=== PATIENT | male | born 1970 | race Hispanic/Latino ===

== ENCOUNTER 2017-05-16 06:58 | Emergency (ER) | payer OTHER ==
[2017-05-16 06:59] VITALS: BMI 34.2
[2017-05-16 07:13] VITALS: BP 112/67; PULSE 73; RESP 16; TEMP 98.1; O2SAT 95
--- NOTE | 2017-05-16 07:24 | ED PDOC ---
Arrival/HPI - General Chief Complaint: Trauma Time Seen by Provider: 05/16/17 07:14 Historian: Patient - History of Present Illness Narrative History of Present Illness (Text): 05/16/17 07:39 A 46 year old male presents to the emergency department complaining of a headache and nose redness and swelling. Patient reports he was at work and as he turned his head hit his nose on the cart. Patient denies any malocclusion of jaw. Denies any loss of consciousness, vomiting, double vision or any other complaints at this time. PMD: Dr. Scott Davidson Symptom Onset: Sudden Symptom Course: Unchanged Modifying Factors (Text): none Context: Work Past Medical History - Provider Review Nursing Documentation Reviewed: Yes - Past History Past History: No Previous - Infectious Disease Hx of Infectious Diseases: None - Tetanus Immunization Tetanus Immunization: Unknown - Cardiac Hx Cardiac Disorders: Yes Other/Comment: dvt left leg post knee sx 2010 - Pulmonary Hx Respiratory Disorders: Yes Hx Pulmonary Embolism: Yes (2009 post op) - Neurological Hx Neurological Disorder: No - HEENT Hx HEENT Disorder: No - Renal Hx Renal Disorder: No - Endocrine/Metabolic Hx Endocrine Disorders: No - Hematological/Oncological Hx Blood Disorders: No - Integumentary Hx Dermatological Disorder: No - Musculoskeletal/Rheumatological Hx Musculoskeletal Disorders: Yes Hx Fractures: Yes (nasal fx) Hx Osteoarthritis: Yes - Gastrointestinal Hx Gastrointestinal Disorders: No - Genitourinary/Gynecological Hx Genitourinary Disorders: No - Psychiatric Hx Psychophysiologic Disorder: No Hx Depression: No Hx Substance Use: No - Past Surgical History Past Surgical History: No Previous - Surgical History Hx Arthroscopy: Yes (left leg) - Anesthesia Hx Anesthesia: Yes Hx Anesthesia Reactions: No Hx Malignant Hyperthermia: No - Suicidal Assessment Feels Threatened In Home Enviroment: No Family/Social History - Physician Review Nursing Documentation Reviewed: Yes Family/Social History: No Known Family HX Smoking Status: Never Smoked Hx Alcohol Use: No Hx Substance Use: No Hx Substance Use Treatment: No Allergies/Home Meds Allergies/Adverse Reactions: Allergies No Known Allergies Allergy (Verified 05/16/17 07:21) Review of Systems - Physician Review All systems were reviewed & negative as marked: Yes - Review of Systems Eyes: absent: Vision Changes ENT: Other (nose redness and swelling) Gastrointestinal: absent: Vomiting Neurological: Headache Physical Exam - Physical Exam Narrative Physical Exam (Text): 05/16/17 08:00 Constitutional: No acute distress. Head: Normocephalic. Atraumatic. Eyes: PERRL. EOMI without pulpia ENT: Moist mucous membranes. Nose straight with mild swelling erythema over bridge, nontender, sensation to light, touch, equal bilaterally face Neck: Supple. Cardiovascular: Regular rate. Chest: No tenderness. Respiratory: Clear to auscultation bilaterally. GI: Soft. Nontender. Nondistended. Back: No CVA tenderness. Musculoskeletal: No tenderness or swelling of extremities. Skin: No rash. Neurologic: Alert, no focal deficit. Vital Signs Reviewed: Yes Vital Signs Temp Pulse Resp BP Pulse Ox 05/16/17 07:12 98.1 F 73 16 112/67 95 Temperature: Afebrile Blood Pressure: Normal Pulse: Regular Respiratory Rate: Normal Appearance: Positive for: Well-Appearing, Non-Toxic, Comfortable Pain Distress: None Mental Status: Positive for: Alert and Oriented X 3 Medical Decision Making ED Course and Treatment: 05/16/17 07:25 Impression: A 46 year old male with headache and nose redness and swelling. Plan: -- Reassess and disposition Prior Visits: Notes and results from previous visits were reviewed. Patient was last seen in the emergency department on 11/09/16 for evaluation of sore mouth. Progress Notes: On re-evaluation, patient feels better and is in no acute distress. Patient in agreement with plan to be discharged home. Patient is stable for discharge. Patient was instructed to follow up with physician or return if symptoms worsen or new concerning symptoms arise. - Medication Orders Current Medication Orders: Discontinued Medications Ibuprofen (Motrin Tab) 600 mg PO STAT STA Stop: 05/16/17 07:34 Last Admin: 05/16/17 07:43 Dose: 600 mg - Scribe Statement The provider has reviewed the documentation as recorded by the Nathan Denise Provider Scribe Attestation: All medical record entries made by the Nathan were at my direction and personally dictated by me. I have reviewed the chart and agree that the record accurately reflects my personal performance of the history, physical exam, medical decision making, and the department course for this patient. I have also personally directed, reviewed, and agree with the discharge instructions and disposition. Disposition/Present on Arrival - Present on Arrival Any Indicators Present on Arrival: Yes History of DVT/PE: Yes History of Uncontrolled Diabetes: No Urinary Catheter: No History of Decub. Ulcer: No History Surgical Site Infection Following: None - Disposition Have Diagnosis and Disposition been Completed?: Yes Diagnosis: Nasal contusion Disposition: HOME/ ROUTINE Disposition Time: 07:22 Patient Plan: Discharge Condition: STABLE Discharge Instructions (ExitCare): Nasal Contusion (ED) Prescriptions: Ibuprofen [Motrin] 600 mg PO Q6 #25 tab Referrals: Catalina Anderson, [Primary Care Provider] - Follow up with primary Forms: [employer] (Nepali), WORK NOTE
== END 2017-05-16 08:00 | disposition home or self-care (01) ==
LOC: ED 06:58
DX: S00.33XA Contusion of nose, initial encounter (principal); W22.8XXA Striking against or struck by other objects, initial encounter; Y99.0 Civilian activity done for income or pay

== ENCOUNTER 2017-06-06 08:48 | Emergency (ER) | payer OTHER ==
[2017-06-06 08:52] VITALS: BMI 33.5
[2017-06-06 09:30] VITALS: BP 139/77; PULSE 69; RESP 16; TEMP 97.9; O2SAT 96
--- NOTE | 2017-06-06 09:38 | ED PDOC ---
Arrival/HPI - General Historian: Patient - General Chief Complaint: Back Pain Time Seen by Provider: 06/06/17 09:25 - History of Present Illness Narrative History of Present Illness (Text): 06/06/17 09:30 46 yo male, worker of [employer], come in for evaluation of Right flank pain gradually developed since early today. 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 Pt reports, pain is gradually developed over Right flank area since the accident. Pt denies fall, denies direct injury, abd. pain, N/V/D, chest pain, shortness of breath, dyspnea, saddle anesthesia, incontinence, denies weakness, sensory or vascular deficits to B/L LEs. Ambulate to Emergency department for evaluation, not in any apparent distress. ( Linda Lundberg) Past Medical History - Provider Review Nursing Documentation Reviewed: Yes - Travel History Have you recently traveled outside [place] w/in the past 3 mons?: No - Past History Past History: No Previous - Infectious Disease Hx of Infectious Diseases: None - Tetanus Immunization Tetanus Immunization: Up to Date - Cardiac Hx Cardiac Disorders: Yes Other/Comment: dvt left leg post knee sx 2010 - Pulmonary Hx Respiratory Disorders: Yes Hx Pulmonary Embolism: Yes (2010 post op) - Neurological Hx Neurological Disorder: No - HEENT Hx HEENT Disorder: No - Renal Hx Renal Disorder: No - Endocrine/Metabolic Hx Endocrine Disorders: No - Hematological/Oncological Hx Blood Disorders: No - Integumentary Hx Dermatological Disorder: No - Musculoskeletal/Rheumatological Hx Musculoskeletal Disorders: Yes Hx Fractures: Yes (nasal fx) Hx Osteoarthritis: Yes - Gastrointestinal Hx Gastrointestinal Disorders: No - Genitourinary/Gynecological Hx Genitourinary Disorders: No - Psychiatric Hx Psychophysiologic Disorder: No Hx Depression: No Hx Substance Use: No Other/Comment: Insomnia - Past Surgical History Past Surgical History: No Previous - Surgical History Hx Arthroscopy: Yes (left leg x3) - Anesthesia Hx Anesthesia: Yes Hx Anesthesia Reactions: No Hx Malignant Hyperthermia: No - Suicidal Assessment Feels Threatened In Home Enviroment: No Family/Social History - Physician Review Nursing Documentation Reviewed: Yes Family/Social History: No Known Family HX Smoking Status: Never Smoked Hx Alcohol Use: No Hx Substance Use: No Hx Substance Use Treatment: No Allergies/Home Meds Allergies/Adverse Reactions: Allergies No Known Allergies Allergy (Verified 06/06/17 09:10) Home Medications: Home Meds Medication Instructions Recorded Confirmed Alprazolam [Xanax] 0.5 mg PO HS 06/06/17 06/06/17 Review of Systems - Review of Systems Constitutional: Normal Eyes: Normal ENT: Normal Respiratory: Normal Cardiovascular: Normal Gastrointestinal: Normal Genitourinary Male: Normal Musculoskeletal: Back Pain Skin: Normal Neurological: Normal Endocrine: Normal Hemo/Lymphatic: Normal Psychiatric: Normal Physical Exam Temperature: Afebrile Blood Pressure: Normal Pulse: Regular Respiratory Rate: Normal Appearance: Positive for: Well-Appearing, Non-Toxic, Comfortable Pain Distress: Mild Mental Status: Positive for: Alert and Oriented X 3 - Systems Exam Head: Present: Normocephalic Conjunctiva: Present: Normal Mouth: Present: Moist Mucous Membranes Neck: Present: Trachea Midline. No: Paraspinal Tenderness Respiratory/Chest: Present: Clear to Auscultation, Good Air Exchange. No: Respiratory Distress, Accessory Muscle Use Cardiovascular: Present: Regular Rate and Rhythm, Normal S1, S2. No: Murmurs Abdomen: Present: Normal Bowel Sounds, Other (Right flank tenderness, no edema, no skin changes, no palpable deformity.). No: Tenderness, Distention, Peritoneal Signs, Rebound, Guarding Back: No: CVA Tenderness, Midline Tenderness, Paraspinal Tenderness Upper Extremity: Present: Cyanosis, Normal ROM. No: Edema, Tenderness, Deformity Lower Extremity: Present: NORMAL PULSES, Normal ROM, Neurovascularly Intact. No : Edema, Tenderness, Deformity Neurological: Present: GCS=15, Speech Normal, Motor Func Grossly Intact, Normal Sensory Function, Norm Deep Tendon Reflexes, Gait Normal Skin: Present: Warm, Dry, Normal Color. 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 AT 10:07, pt resting comfortably, not in any apparent distress. Afebrile, hemodynamicaly stable. non-toxic. Ambulatory in Emergency department with stable gait. Abd: benign, (-) guarding, (-) rebound, (-) localized tenderness. Back: (-) CVA tenderness. Neurologicaly intact. Urinalysis results review- normal CXR (-) acute abnormalities Pt has clinical findings c/w Right flank strain. Pt advised and ref. to f/u with Employee health in 24-48 hrs for re-evaluation and further tx as need return to Emergency department if any worsening or new changes. (Linda Lundberg) I was available for consultation during PA evaluation. The chart was reviewed by me, and I agree with disposition. The documented history was done by the physician entry level buyer. The documented physical exam was done by the physician entry level buyer. The documented procedures were done by the physician entry level buyer. (Candido Jarrell) - Lab Interpretations Lab Results: Lab Results 06/06/17 09:45: Urine Opiates Screen Negative, Urine Methadone Screen Negative, Ur Barbiturates Screen Negative, Ur Phencyclidine Scrn Negative, Ur Amphetamines Screen Negative, U Benzodiazepines Scrn Positive H, U Oth Cocaine Metabols Negative, U Cannabinoids Screen Negative 06/06/17 09:45: Urine Color Yellow, Urine Appearance Clear, Urine pH 6.0, Ur Specific [place] >= 1.030, Urine Protein Negative, Urine Glucose (UA) Negative, Urine Ketones Negative, Urine Blood Trace-lysed H, Urine Nitrate Negative, Urine Bilirubin Negative, Urine Urobilinogen 0.2, Ur Leukocyte Esterase Negative , Urine RBC 0 - 2, Urine WBC Negative - RAD Interpretation Radiology Orders: 06/06/17 09:29 CHEST TWO VIEWS (PA/LAT) [RAD] Stat IMPRESSION: No active disease. (Linda Lundberg) - Medication Orders Current Medication Orders: Discontinued Medications Ibuprofen (Motrin Tab) 600 mg PO STAT STA Stop: 06/06/17 09:30 Last Admin: 06/06/17 10:01 Dose: 600 mg MAR Pain/Vitals Document 06/06/17 10:01 W[place] (Rec: 06/06/17 10:02 WY [id number]) Pain Reassessment Is This A Pain ReAssessment? No Sleep Is patient sleeping during reassessment? No Presence of Pain Presence of Pain Yes Pain Scale Used Pain Scale Used Numeric Location Left, Right or Bilateral Right Pain Location Body Site Back Description Throbbing Intensity 4 Scale Used Numeric Pain Behavior Rubbing Site Aggravating Factors Changing Position Exercise/Activity Disposition/Present on Arrival - Present on Arrival Any Indicators Present on Arrival: No History of DVT/PE: Yes History of Uncontrolled Diabetes: No Urinary Catheter: No History of Decub. Ulcer: No History Surgical Site Infection Following: None - Disposition Have Diagnosis and Disposition been Completed?: Yes Disposition Time: 10:10 Patient Plan: Discharge - Disposition Diagnosis: Right flank pain, Work-related illness Disposition: HOME/ ROUTINE Patient Problems: Current Active Problems Problem Status Onset Right flank pain Acute Work-related illness Acute Condition: STABLE Discharge Instructions (ExitCare): Flank Pain (ED) Additional Instructions: LIght duty to lower back Take medication for pain as prescribed as need FOLLOW UP WITH EMPLOYEE HEALTH in 24-48 HOURS FOR RE-EVALUATION. Return to Emergency department at any time if any worsening or new changes. Prescriptions: Ibuprofen [Motrin Tab] 600 mg PO Q6 #14 tab Methocarbamol [Robaxin] 500 mg PO TID #14 tab Referrals: Scott Davidson MD [Primary Care Provider] - Follow up with primary Forms: [employer] [facility] (Frisian), WORK NOTE
[2017-06-06 10:02] LABS: URINE BILIRUBIN NEGATIVE (NEGATIVE); URINE BLOOD TRACE-LYSED (NEGATIVE); URINE GLUCOSE (UA) NEGATIVE (NEGATIVE); URINE KETONE NEGATIVE (NEGATIVE); URINE LEUKOCYTE ESTERASE NEGATIVE Leu/uL (NEGATIVE); URINE PROTEIN NEGATIVE mg/dL (<30 mg/dL); URINE UROBILINOGEN 0.2 E.U./dL (<1 E.U./dL)
[2017-06-06 10:04] LABS: URINE APPEARANCE CLEAR (CLEAR); URINE COLOR YELLOW (YELLOW)
[2017-06-06 10:14] LABS: URINE RBC 0 - 2 /hpf (0-2); URINE WBC NEGATIVE /hpf (0-6)
--- NOTE | 2017-06-06 10:55 | RAD ---
HISTORY: Cough COMPARISON: 09/06/2015 TECHNIQUE: Chest PA and lateral FINDINGS: LUNGS: No active pulmonary disease. PLEURA: No significant pleural effusion identified. No pneumothorax apparent. CARDIOVASCULAR: Normal. OSSEOUS STRUCTURES: No significant abnormalities. VISUALIZED UPPER ABDOMEN: Normal. OTHER FINDINGS: None. IMPRESSION: No active disease.
== END 2017-06-06 11:25 | disposition home or self-care (01) ==
LOC: ED 08:48
DX: R10.9 Unspecified abdominal pain (principal); Y99.0 Civilian activity done for income or pay

== ENCOUNTER 2018-03-09 06:42 | Day surgery (SDC) | payer OTHER ==
[2018-03-05 13:59] VITALS: BMI 34.2
[2018-03-09 07:28] LABS: BASO # 0.04 K/mm3 (0.0-2.0); BASO % 0.6 % (0.0-3.0); EOS # 0.3 (0.0-0.7); EOS % 3.8 % (1.5-5.0); GRAN # 3.99 (1.4-6.5); HEMOGLOBIN 14.2 g/dL (14.0-18.0); LYMPH # 1.7 (1.2-3.4); LYMPH % 26.3 % (22.0-35.0); MEAN CELL VOLUME 84.6 fl (80.0-105.0); MEAN CORPUSCULAR HEMOGLOBIN 28.7 pg (25.0-35.0); MEAN CORPUSCULAR HGB CONC 33.9 g/dl (31.0-37.0); MONO # 0.5 (0.1-0.6); MONO % 8.3 % (1.0-6.0); RBC 4.95 10^6/uL (3.5-6.1); RED CELL DISTRIBUTION WIDTH 13.8 % (11.5-14.5); WHITE BLOOD COUNT 6.5 10^3/ul (4.5-11.0)
[2018-03-09 07:39] LABS: BLOOD UREA NITROGEN 14 mg/dL (7-21); CALCIUM 8.9 mg/dL (8.4-10.5); GFR AFRICAN-AMERICAN > 60; GFR NON-AFRICAN AMERICAN > 60
[2018-03-09 07:42] LABS: INR 1.1 (0.93-1.08); PARTIAL THROMBOPLASTIN TIME 25.3 Seconds (25.1-36.5); PROTHROMBIN TIME 12.7 SECONDS (9.4-12.5)
[2018-03-09] MEDS ORDERED: Nitroglycerin 50mg in D5W 50 MG/250 ML BOTTLE IV ONE (08:05)
[2018-03-09] MEDS ORDERED: Iodixanol 320 MG/ML 200 ML BOTTLE IV ONE (08:05)
[2018-03-09] MEDS ORDERED: Lidocaine 2% Inj (20ml) ONE (08:05)
[2018-03-09] MEDS ORDERED: Verapamil 2 ML ONE (08:05)
--- NOTE | 2018-03-09 08:17 | HP ---
REASON FOR CONSULTATION: History and physical for left heart catheterization. Patient is going to be admitted for left heart catheterization, possible angioplasty. BRIEF CLINICAL HISTORY: This is a 47-year-old male with no significant past medical history, recently complaining of dyspnea on exertion, chest pain on exertion. Dyspnea on exertion is occasional, one to two episode of PND, orthopnea. So, patient underwent noninvasive workup, which is abnormal. So patient is scheduled for elective cardiac cath and possible angioplasty. PAST MEDICAL HISTORY: Nothing significant. SOCIAL HISTORY: Denies any history of smoking. Denies any history of alcohol abuse. CURRENT MEDICATIONS: At home, none before I see him, recently started digoxin 0.25 mg daily, Coreg 3.125 mg daily, baby aspirin 81 mg daily. RECENT CARDIAC WORKUP FOLLOWS: Patient had a stress test on 02/20/2018, that shows abnormal stress myocardial perfusion study, partially reversible anteroseptal defect, suspicious of ischemia, fixed inferior defect most likely is secondary to diaphragmatic attenuation, severe LV dysfunction, diffuse hypokinesis, ejection fraction of 9%. Patient had echocardiography on 02/20/2018 that shows four-chamber dilatation consistent with cardiomyopathy, ejection fraction 15%; mitral regurgitation, [id number]; mild tricuspid regurgitation; RV systolic pressure 37. No pericardial effusion. REVIEW OF SYSTEMS: As per HPI. PHYSICAL EXAMINATION: VITAL SIGNS: As follows, height of the patient 5 feet 11 inches, weight of the patient 245 ponds, body mass index 34.2 kg/m2. Rest of the examination as follows, heart rate 68, blood pressure 110/70. HEENT: PERRLA. Extraocular muscles intact. NECK: Supple. No carotid bruits or thyromegaly. CHEST: Clear to auscultation. HEART: S1 and S2 regular. ABDOMEN: Soft. EXTREMITIES: Clubbing and cyanosis negative. LABORATORY DATA: Blood workup pending. IMPRESSION: Abnormal stress test, myocardial anteroseptal reversible ischemia, decreased left ventricular function, four-chamber dilatation by echo. RECOMMENDATIONS: Cardiac catheterization. We will load aspirin and Plavix. Repeat the blood workup. Patient agreed. We will proceed for cardiac catheterization and possible angioplasty. Further recommendation after the cardiac catheterization. Thank you, Dr. Davidson, for providing us the opportunity in taking care of Nando Pierre . Vera Cloud MD JOE
[2018-03-09] MEDS ORDERED: Midazolam 2 MG/2 ML VIAL ONE ×2 (08:34→09:53)
--- NOTE | 2018-03-09 08:52 | CARD ---
APPROVED REPORT EKG Measurement Heart [id number] [place] [id number] <Conclusion> Sinus with frequent PVCs [facility] are new c/w ECG 02/02/18 1st degree AVB LBBB
[2018-03-09] MEDS ORDERED: Bacitracin 500 Units/gm Oint Foilpak UD TOP ONE (09:52)
[2018-03-09] MEDS ORDERED: Sodium Chloride 0.9% 1,000 ML IV SCH (10:00)
[2018-03-09 10:15] VITALS: RESP 20; TEMP 97.8
[2018-03-09 10:34] VITALS: O2SAT 97
[2018-03-09] MEDS ORDERED: Bacitracin 500 Units/gm Oint Foilpak UD ONE (12:57)
--- NOTE | 2018-03-09 12:59 | CPOSTOP ---
DATE: 03/09/2018 CARDIOVASCULAR LAB POST PROCEDURE NOTE DICTATING PHYSICIAN: Vera Cloud MD TRADEMARK AFFIXER: PAULINA Messer. TYPE OF ANESTHESIA: Moderate conscious sedation. Total 2 mg of Versed, 100 mcg of fentanyl given. Periodically started 1 mg of Versed and 50 of fentanyl. PRE-PROCEDURE DIAGNOSES: Abnormal stress test, cardiomyopathy, etiology unclear. PROCEDURE PERFORMED: Left heart catheterization. FINDINGS: Normal coronaries, severely decreased LV function, nonischemic cardiomyopathy. FINAL DIAGNOSIS: Nonischemic cardiomyopathy. POST PROCEDURE CONDITION: Postprocedure, patient's condition is stable. VASCULAR ACCESS: Left radial artery. CLOSURE DEVICE: TR Band. TOTAL RADIATION DOSE: 6744 milligray unit. TOTAL FLUORO TIME: 2.7 minutes. Vera Cloud MD
[2018-03-09 14:06] VITALS: PULSE 42
[2018-03-09 14:23] VITALS: BP 107/47
[2018-03-10] MEDS ORDERED: Digoxin 250 mcg (0.25 mg) Tab PO SCH (10:00)
--- NOTE | 2018-03-11 17:51 | CARD ---
APPROVED REPORT Date of service: 03/09/2018 Procedure(s) performed: Left Heart Catheterization HISTORY The patient is a 47 year-old male with a history of : most recent EF: 9%. (EF Method: RADIONUCLIDE), Cardiomyopathy and severely decresed LV FX. EF- 09% by Stress test and 15% by Echo.. INDICATION The indication(s) include : positive stress test, anteroseptal Ischemia and EF-9%, by echo EF-15%. CASE TECHNIQUE The patient was brought electively to the Cardiac Catheterization Laboratory in a fasting state and was prepped and draped in a sterile manner. The left wrist was infiltrated with 2% Lidocaine subcutaneous anesthesia. A 6FR GLIDESHEATH ACCESS KIT sheath was inserted into the left radial artery without difficulty. Coronary angiography was performed using coronary diagnostic catheters. The left coronary system was accessed and visualized with a Diagnostic ,5F JL 4 CATH DXT 100 CM catheter. The right coronary system was accessed and visualized with a Diagnostic ,5F JR 4 CATH DXT 100 CM catheter. The left ventricle was accessed and visualized with a 5F PIGTAIL 145 CATH DXT 110 CM catheter. Left ventricular/Aortic Valve gradient assessed on pullback. Left ventriculogram was performed in [place] projection. Closure device was deployed with a Fr TR Band (Large) without any complications. The patient tolerated the procedure well and there were no complications associated with the procedure. Vessel Analysis The patient's coronary anatomy is right dominant. The left main coronary artery is a large size vessel without significant stenosis. The left main trifurcates to the left anterior descending, circumflex, and ramus. The left anterior descending artery is a medium size vessel with intimal irregularities and without significant stenosis. The first diagonal branch is a small size vessel with intimal irregularities. The second diagonal branch is a small size vessel with intimal irregularities and without significant stenosis. The third diagonal branch is a large size vessel with intimal irregularities and without significant stenosis. The circumflex artery is a medium size vessel with intimal irregularities. The first obtuse marginal branch is a medium size vessel with intimal irregularities. The second obtuse marginal branch is a medium size vessel with intimal irregularities and without significant stenosis. The ramus intermedius artery is a medium size vessel with intimal irregularities and without significant stenosis. The right coronary artery is a large size vessel with intimal irregularities and without significant stenosis. The right posterior descending artery is a medium size vessel with intimal irregularities and without significant stenosis. The right posterolateral branch is a medium size vessel with intimal irregularities and without significant stenosis. Left Ventricle The left ventricle is severely enlarged in size with severely decreased contracility contractility. Non-Ischemic cardiomyopathy. The left ventricular ejection fraction is estimated to be 20-25%. The left ventricular end diastolic pressure is 25-30 mmHg. There was no gradient across the aortic valve upon pullback. Conclusion Normal coronaries Non ischemic [id number]%, EDP-25-30 mmof hg. Recommendations Cardiac Rehabilitation Referral Aggressive Medical TherapyCardiac Risk Reduction Program Weight Loss Reduction Program Dig, Diuretics, Spironolactone, Coreg, and lisinopril as BP is tolerated. Re assess LV Fxin 3-6 months , if remains less than 35%, consider AICD. CC; dr. Scott Davidson MD
== END 2018-03-09 14:45 | disposition home or self-care (01) ==
LOC: CATH 06:42
PROVIDERS: ATTEND Internal Medicine Cardiovascular Disease
DX: I42.9 Cardiomyopathy, unspecified (principal)
CPT/HCPCS: 36415; 80048; 85025; 85610; 85730; 86850; 86900; 93005; 93458; 99152; 99153; C1769; J1644 ×2; J1940; J2250; J3010; J7030; Q9966